=== PATIENT | male | born 1980 | race American Indian/Alaskan Native ===

== ENCOUNTER 2016-12-15 08:35 | Emergency (ER) | payer MEDICARE, OTHER ==
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
[2016-12-15 09:38] VITALS: BP 144/89; PULSE 77; RESP 16; TEMP 98; O2SAT 98; BMI 24.5
--- NOTE | 2016-12-15 10:19 | RAD ---
PROCEDURE: Radiographs of the Lumbar Spine. HISTORY: lower back pain x 2 years COMPARISON: No prior. FINDINGS: BONES: Normal alignment. No listhesis. No fracture. DISC SPACES: Unremarkable. OTHER FINDINGS: None. IMPRESSION: Unremarkable radiographs of the lumbar spine.
== END 2016-12-15 10:48 | disposition home or self-care (01) ==
LOC: ED 08:35
DX: J06.9 Acute upper respiratory infection, unspecified (principal); K12.0 Recurrent oral aphthae; M54.9 Dorsalgia, unspecified; G89.29 Other chronic pain
CPT/HCPCS: 72110; 96372; 99284; J1885